=== PATIENT | female | born 1955 | race Caucasian/White ===

== ENCOUNTER → 2024-08-15 12:28 | Outpatient (REF) | payer MEDICARE, SELFPAY | LOC: WDC 12:28 | PROVIDERS: ATTENDING PHYSICIAN Obstetrics & Gynecology Gynecology; FAMILY PHYSICIAN Family Medicine | DX: Z12.31 Encounter for screening mammogram for malignant neoplasm of breast (principal) | CPT/HCPCS: 77063; 77067 ==

== ENCOUNTER → 2025-08-18 12:30 | Outpatient (REF) | payer MEDICARE, SELFPAY | LOC: WDC 12:30 | PROVIDERS: ATTENDING PHYSICIAN Physician Assistant Medical | DX: Z12.31 Encounter for screening mammogram for malignant neoplasm of breast (principal) | CPT/HCPCS: 77063; 77067 ==